=== PATIENT | male | born 1945 | race Caucasian/White ===

== ENCOUNTER 2018-11-10 11:45 | Inpatient (IN) ==
--- NOTE | 2018-11-03 08:59 | EKG Report ---
Test Performed on : 11/03/2018 08:41:02 AM Test Reason : PAT Blood Pressure : / mmHG Vent. Rate : 067 BPM Atrial Rate : 067 BPM P-R Int : 170 ms QRS Dur : 094 ms QT Int : 406 ms P-R-T Axes : 058 022 053 degrees QTc Int : 429 ms Normal sinus rhythm. Normal ECG When compared with ECG of 02-NOV-2007 07:14, No significant change was found Confirmed by Victor M SHARMA, Mitchel Lujan ([id number]) on 11/04/2018 7:12:41 PM
[2018-11-03 10:20] LABS: URINE SOURCE CLEAN CATCH
[2018-11-03 10:25] LABS: BASO# 0.03 X1000 (0.0-0.2); BASO% 0.4 % (0.0-0.8); EOS# 1.17 X1000 (0.0-0.7); EOS% 14.4 % (0.0-10.0); HEMATOCRIT 44.2 % (42.0-52.0); HEMOGLOBIN 14.5 g/dL (14.0-18.0); IMM GRAN# 0.04 X1000 (0.0-0.04); IMM GRAN% 0.5 % (0.0-0.5); LYMPH# 1.07 X1000 (1.2-3.4); LYMPH% 13.2 % (20.5-51.1); MCH 29.4 PG (27-31); MCHC 32.8 g/dL (33-37); MCV 89.7 FL (81-99); MONO# 0.67 X1000 (0.11-0.59); MONO% 8.3 % (1.7-9.3); MPV 9.8 FL (7.4-10.4); NEUT# 5.14 X1000 (1.4-6.5); NEUT% 63.2 % (42.2-75.2); PLT 283 X1000 (130-400); RBC 4.93 XMIL (4.7-6.1); RDW 14.8 % (11.5-14.5); WBC 8.12 X1000 (4.8-10.8)
[2018-11-03 10:30] LABS: BILIRUBIN URINE NEGATIVE (NEGATIVE); BLOOD URINE NEGATIVE (NEGATIVE); COLOR YELLOW; GLUCOSE URINE NEGATIVE (NEGATIVE); KETONE URINE NEGATIVE (NEGATIVE); LEUKOCYTES URINE NEGATIVE (NEGATIVE); NITRITE URINE NEGATIVE (NEGATIVE); PROTEIN URINE NEGATIVE (NEGATIVE); SP GRAVITY URINE 1.014; TURBIDITY URINE CLEAR (CLEAR); UROBILINOGEN URINE NORMAL (NORMAL)
[2018-11-03 10:31] LABS: UR EPITHELIAL CELLS <10 /HPF (<10); URINE BACTERIA NEGATIVE /HPF; URINE RBC <10 /HPF (<10); URINE WBC <10 /HPF (<10)
[2018-11-03 10:32] LABS: INR 0.9; PROTIME 12.9 Seconds (11.0-16.0)
[2018-11-03 10:33] LABS: PTT 28.3 Seconds (22.3-41.8)
[2018-11-03 10:59] LABS: CALCIUM 9.8 mg/dL (8.8-10.2); CREATININE 1.6 mg/dL (0.7-1.2); POTASSIUM 4.9 mmol/L (3.5-5.1)
[2018-11-24] MEDS ORDERED: REGLAN ONE (07:14)
[2018-11-24] MEDS ORDERED: COLACE ONE (07:14)
[2018-11-24] MEDS ORDERED: KEFZOL 1 GM/D5W 2 GM/100 ML IVPB ONE (07:14)
[2018-11-24] MEDS ORDERED: PEPCID ONE (07:14)
[2018-11-24] MEDS ORDERED: LR 1,000 ML ONE (07:14)
[2018-11-24] MEDS ORDERED: LYRICA ONE (07:14)
[2018-11-24] MEDS ORDERED: TORADOL ONE (07:16)
[2018-11-24] MEDS ORDERED: DURAMORPH ONE (07:16)
[2018-11-24] MEDS ORDERED: VANCOMYCIN ONE (07:16)
[2018-11-24] MEDS ORDERED: SODIUM CHLORIDE 0.9% ONE (07:17)
[2018-11-24] MEDS ORDERED: NEOSPORIN G.U. IRRIGANT ONE (07:17)
[2018-11-24] MEDS ORDERED: EXPAREL 1.3% ONE (07:17)
[2018-11-24] MEDS ORDERED: SENSORCAINE-MPF 0.5%/EPI 1:200,000 ONE (07:17)
[2018-11-24] MEDS ORDERED: CYKLOKAPRON 1,000 MG/NS 1,000 MG/100 ML IVPB ONE (07:17)
[2018-11-24] MEDS ORDERED: DIPRIVAN 1% ONE (07:25)
[2018-11-24] MEDS ORDERED: XYLOCAINE-MPF 2% ONE (07:26)
[2018-11-24] MEDS ORDERED: FENTANYL ONE (07:26)
[2018-11-24] MEDS ORDERED: NORCURON ONE (07:31)
[2018-11-24] MEDS ORDERED: SODIUM CHLORIDE 0.9% 10 ML ONE (07:31)
[2018-11-24] MEDS ORDERED: CLARITIN PO SCH (09:00)
[2018-11-24] MEDS ORDERED: EPHEDRINE ONE (09:23)
[2018-11-24] MEDS ORDERED: SOLU-CORTEF ONE (09:26)
[2018-11-24] MEDS ORDERED: ZOFRAN ONE (09:26)
[2018-11-24] MEDS ORDERED: OFIRMEV 1000 MG/ISOTONIC SOLN 1,000 MG/100 ML BOTTLE ONE (09:26)
[2018-11-24] MEDS ORDERED: NEOSTIGMINE ONE (09:48)
[2018-11-24] MEDS ORDERED: ROBINUL ONE (09:51)
--- NOTE | 2018-11-24 10:38 | OPERATIVE NOTE ---
PROCEDURE DATE: 11/24/2018 PREOPERATIVE DIAGNOSIS: Left glenohumeral arthritis with chronic rotator cuff tear. POSTOPERATIVE DIAGNOSIS: Left glenohumeral arthritis with chronic rotator cuff tear. PROCEDURE: Left reverse total shoulder arthroplasty with a DePuy Delta Xtend size 10 Press-Fit stem, a 42+6 humeral cup, a 42 eccentric Glenosphere and a standard metaglene. SURGEON: Zander Carver MD. 1ST HATCHERY HELPER: JOCELYN Colon 2ND HATCHERY HELPER: Maulik Bowie RN. ANESTHESIA: General. IV FLUIDS: 1700 mL lactated Ringer's. ESTIMATED BLOOD LOSS: 150 mL. COMPLICATIONS: None. INDICATION: The patient is a 73-year-old male with chronic history of pain and discomfort in his left shoulder. He is status post rotator cuff repair last year. He has continued with pain and discomfort and subsequent MR arthrogram was obtained and revealed evidence of degenerative glenohumeral arthritis as well as large chronic recurrent tear. Given patient's findings, recommendation to proceed with left reverse shoulder arthroplasty was offered. Risks and benefits of surgery were explained, including the risks of anesthesia, , bleeding, infection, failure to relieve pain, postoperative stiffness, nerve injury, blood clots, and other imponderables. All questions were answered and the patient and family wished to proceed with surgery. DETAILS OF OPERATION: Patient was taken to the operating room and placed supine on operating table. Once adequate anesthesia was obtained, patient was placed in semi-Rodriguez beach-chair position. The left shoulder was subsequently prepped and draped in usual sterile fashion. A standard deltopectoral incision was made with a skin knife. Medial and lateral skin envelopes were developed. The deltopectoral interval was then developed and the cephalic vein was retracted laterally with the deltoid. Stay sutures placed in the subscapularis tendon. Approximately 1 cm medial to its insertion the subscapularis tendon was released. Retractor was then placed. The shoulder was then dislocated anteriorly. Patient did have evidence of degenerative glenohumeral arthritis. A starting reamer was then passed. Sequential reaming was conducted up to size 10. The intramedullary guide was then placed and the proximal humeral cutting block was pinned in position, approximately 10 to 15 degrees of retroversion. The humeral head was then resected. The inferior osteophyte was removed with osteotome. After this had been performed, the attention was then turned to the glenoid. Circumferential dissection was performed with the deep knife. A guide was then placed in position to position the guide pin and the guide pin was placed. Reaming was then conducted. The central hole was then dilated. After this had been performed, the wound was copiously irrigated with antibiotic pulsatile lavage. A standard metaglene was then impacted into position. 2 locking screws and 2 nonlocking screws were placed and had good purchase and good stability. The wound was copiously irrigated. A 42 eccentric Glenosphere was then placed with the eccentricity placed inferiorly. After this had been performed, attention was then turned to the proximal humerus. The intramedullary guide was placed in position and the proximal humerus was reamed. A size 10 Delta Xtend Press-Fit stem was impacted in approximately 15 degrees of retroversion and had good fit. Trial cup size was then placed. 42+ 6 humeral cup appeared to be correct size. The trial cup was removed. The wound was copiously irrigated. A 42+ 6 humeral cup was impacted on the stem. The shoulder was reduced, carried through range of motion and had good range of motion and good stability. The wound was copiously irrigated once again. Exparel was placed in deep soft tissue. A #2 FiberWire was used to repair the subscapularis tendon. There appeared to be good repair. The remaining Exparel was placed in the deep tissue as well subcutaneous tissue. The wound was copiously irrigated once again. Final irrigation was then performed. 2-0 Vicryl was used to repair the subcutaneous tissue, followed by running 2-0 Prolene. Benzoin and Steri-Strips were applied. Adaptic, sterile 4 x 4, ABD pad, and tape were applied to the left shoulder, followed by shoulder immobilizer. All counts were correct. Patient tolerated the procedure well and was transferred to recovery room in stable condition. cc: Zander Carver MD
[2018-11-24 11:02] LABS: URINE SOURCE CATH
[2018-11-24 11:08] LABS: BILIRUBIN URINE NEGATIVE (NEGATIVE); BLOOD URINE NEGATIVE (NEGATIVE); COLOR ORANGE; GLUCOSE URINE NEGATIVE (NEGATIVE); KETONE URINE NEGATIVE (NEGATIVE); LEUKOCYTES URINE NEGATIVE (NEGATIVE); NITRITE URINE NEGATIVE (NEGATIVE); PH URINE 6.5; PROTEIN URINE NEGATIVE (NEGATIVE); SP GRAVITY URINE 1.015; TURBIDITY URINE CLEAR (CLEAR); UROBILINOGEN URINE NORMAL (NORMAL)
[2018-11-24 11:09] LABS: UR EPITHELIAL CELLS <10 /HPF (<10); URINE BACTERIA NEGATIVE /HPF; URINE RBC <10 /HPF (<10); URINE WBC <10 /HPF (<10)
[2018-11-24] MEDS ORDERED: NS 1,000 ML ONE (11:20)
--- NOTE | 2018-11-24 11:20 | Diag Imaging Result Doc PS360 ---
EXAM: SHOULDER 1 VIEW LEFT 11/24/2018 HISTORY: total shoulder reverse on left TECHNIQUE: Portable left shoulder one view COMMENT: There is no evidence of acute fracture or dislocation. There is a total shoulder arthroplasty. IMPRESSION: No evidence of acute bony disease. Electronically signed by Nikhil Bhatt 11/24/2018 11:18 AM
[2018-11-24] MEDS: DILAUDID ONE ×2 (11:36→11:40)
[2018-11-24] MEDS ORDERED: ZOFRAN PO PRN (12:15)
[2018-11-24] MEDS ORDERED: NS 1,000 ML IV SCH (12:15)
[2018-11-24] MEDS ORDERED: DILAUDID IV PRN ×2 (12:15)
[2018-11-24] MEDS ORDERED: OXY IR PO PRN ×2 (12:15)
[2018-11-24] MEDS: TYLENOL PO SCH (15:24)
[2018-11-24] MEDS: KEFZOL 1 GM/D5W 1 GM/50 ML IVPB IV SCH (15:30)
[2018-11-24] MEDS: FLOMAX PO SCH (20:32)
[2018-11-24] MEDS ORDERED: MAG-OX PO SCH (21:00)
[2018-11-24] MEDS ORDERED: ALDACTONE PO SCH (21:00)
[2018-11-24] MEDS ORDERED: PERIDEX MT SCH (21:00)
[2018-11-24] MEDS ORDERED: COZAAR PO SCH (21:00)
[2018-11-24] MEDS ORDERED: PROSCAR PO SCH (21:00)
[2018-11-24] MEDS ORDERED: PRAVACHOL PO SCH (21:00)
[2018-11-25] MEDS: TYLENOL PO SCH ×3 (00:22→06:50)
[2018-11-25] MEDS: KEFZOL 1 GM/D5W 1 GM/50 ML IVPB IV SCH (00:22)
[2018-11-25 05:48] LABS: HEMATOCRIT 38.1 % (42.0-52.0); HEMOGLOBIN 12.8 g/dL (14.0-18.0)
[2018-11-25 06:02] LABS: CALCIUM 8.6 mg/dL (8.8-10.2); CREATININE 1.4 mg/dL (0.7-1.2); POTASSIUM 4.4 mmol/L (3.5-5.1)
[2018-11-25] MEDS: FLOMAX PO SCH (06:05)
--- NOTE | 2018-11-25 06:24 | PROGRESS NOTE ---
DATE: 11/25/2018 SUBJECTIVE: The patient is a pleasant 73-year-old male who is one day status post left reversal shoulder arthroplasty. He appears to be resting comfortably. He has no complaints. OBJECTIVE: On physical exam, patient's left upper extremity dressing is intact. He is neurovascularly distally. Good foam rubber mixer strength. LABORATORY DATA: His hemoglobin is 12.8 and hematocrit is 38.1. IMPRESSION: Postoperative day #1 status post left reverse total shoulder arthroplasty. PLAN: At this point, we will change his dressing. We will plan on discharging him home. The patient will follow up on 12/06/2018. We will arrange for outpatient physical therapy. cc: Zander Carver MD
[2018-11-25 08:04] VITALS: BP 104/57
== END 2018-11-25 08:22 | disposition home or self-care (01) | DRG 483 ==
LOC: SURHOLD 11-24 06:31 → 4N 11-24 11:13
PROVIDERS: ADMIT Orthopaedic Surgery Adult Reconstructive Orthopaedic Surgery; ATTEND Orthopaedic Surgery Adult Reconstructive Orthopaedic Surgery
CPT/HCPCS: 73020; 80048; 81001; 85014; 85018; 85025; 85610; 85730; 86850; 86900; 86901; 88304; 88311; 93005; 93010; 94761; 94799; A9270; C9290; J0131; J0690; J1170; J1720; J1885; J2274; J2275; J2405; J3010; J3370; J7030; J7120; Q9974; S0138

== ENCOUNTER 2019-10-20 01:07 | Inpatient (IN) ==
--- NOTE | 2019-10-12 10:45 | EKG Report ---
Test Performed on : 10/12/2019 10:33:24 AM Test Reason : PAT Blood Pressure : / mmHG Vent. Rate : 074 BPM Atrial Rate : 074 BPM P-R Int : 170 ms QRS Dur : 100 ms QT Int : 384 ms P-R-T Axes : 052 036 054 degrees QTc Int : 426 ms Normal sinus rhythm. Normal ECG When compared with ECG of 03-NOV-2018 08:41, No significant change was found Confirmed by Toribio SHARMA, Ernesto ([id number]) on 10/12/2019 5:54:43 PM
[2019-10-12 10:47] LABS: URINE SOURCE CLEAN CATCH
[2019-10-12 11:21] LABS: BASO# 0.03 X1000 (0.0-0.2); BASO% 0.3 % (0.0-0.8); EOS# 0.46 X1000 (0.0-0.7); EOS% 3.8 % (0.0-10.0); HEMATOCRIT 46.1 % (42.0-52.0); IMM GRAN# 0.03 X1000 (0.0-0.04); IMM GRAN% 0.3 % (0.0-0.5); LYMPH# 1.05 X1000 (1.2-3.4); LYMPH% 8.8 % (20.5-51.1); MCH 29.6 PG (27-31); MCHC 32.5 g/dL (33-37); MCV 90.9 FL (81-99); MONO# 0.55 X1000 (0.11-0.59); MONO% 4.6 % (1.7-9.3); NEUT# 9.86 X1000 (1.4-6.5); NEUT% 82.2 % (42.2-75.2); PLT 271 X1000 (130-400); RBC 5.07 XMIL (4.7-6.1); RDW 13.5 % (11.5-14.5); WBC 11.98 X1000 (4.8-10.8)
[2019-10-12 11:38] LABS: BILIRUBIN URINE NEGATIVE (NEGATIVE); BLOOD URINE NEGATIVE (NEGATIVE); COLOR YELLOW; GLUCOSE URINE NEGATIVE (NEGATIVE); KETONE URINE NEGATIVE (NEGATIVE); LEUKOCYTES URINE NEGATIVE (NEGATIVE); NITRITE URINE NEGATIVE (NEGATIVE); PH URINE 5.5; PROTEIN URINE NEGATIVE (NEGATIVE); SP GRAVITY URINE 1.025; TURBIDITY URINE CLEAR (CLEAR); UROBILINOGEN URINE 2 mg/dL (NORMAL)
[2019-10-12 11:39] LABS: INR 0.96; PROTIME 12.9 Seconds (11.0-16.0); UR EPITHELIAL CELLS <10 /HPF (<10); URINE BACTERIA NEGATIVE /HPF; URINE RBC <10 /HPF (<10); URINE WBC <10 /HPF (<10)
[2019-10-12 11:40] LABS: PTT 26.3 Seconds (22.3-41.8)
[2019-10-12 11:47] LABS: CALCIUM 9.5 mg/dL (8.8-10.2); CREATININE 1.6 mg/dL (0.7-1.2); POTASSIUM 4.1 mmol/L (3.5-5.1)
[2019-10-12 11:53] LABS: HEMOGLOBIN A1C 5.7 % (4.8-6.0)
[2019-10-20] MEDS ORDERED: LYRICA ONE (06:25)
[2019-10-20] MEDS ORDERED: COLACE ONE (06:25)
[2019-10-20] MEDS ORDERED: REGLAN ONE (06:25)
[2019-10-20] MEDS ORDERED: LR 1,000 ML ONE (06:25)
[2019-10-20] MEDS ORDERED: KEFZOL 1 GM/D5W 2 GM/100 ML IVPB ONE (06:25)
[2019-10-20] MEDS ORDERED: PEPCID ONE (06:25)
[2019-10-20] MEDS ORDERED: DIPRIVAN 1% ONE (07:27)
[2019-10-20] MEDS ORDERED: SUFENTA ONE ×2 (07:29→10:33)
[2019-10-20] MEDS ORDERED: MARCAINE 0.5% PF ONE (07:55)
[2019-10-20] MEDS ORDERED: EXPAREL 1.3% ONE (07:56)
[2019-10-20] MEDS ORDERED: EPHEDRINE ONE (08:38)
[2019-10-20] MEDS ORDERED: XYLOCAINE-MPF 2% ONE (08:40)
[2019-10-20] MEDS ORDERED: ROBINUL ONE (09:04)
[2019-10-20] MEDS ORDERED: ZOFRAN ONE ×2 (10:27→12:37)
[2019-10-20] MEDS ORDERED: DECADRON ONE ×2 (10:27→12:37)
[2019-10-20] MEDS ORDERED: MORPHINE IV PRN (11:09)
[2019-10-20] MEDS ORDERED: DILAUDID IV PRN (12:46)
--- NOTE | 2019-10-20 12:59 | OPERATIVE NOTE ---
PROCEDURE DATE: 10/20/2019 PREOPERATIVE DIAGNOSIS: Right ankle posttraumatic osteoarthritis. POSTOPERATIVE DIAGNOSIS: Right ankle posttraumatic osteoarthritis. PROCEDURE: Right total ankle replacement. SURGEON: Dr. Brien Latham. LEAD SHAREPOINT DEVELOPER: JOCELYN Hooks, who was an integral part of the case, helping with all aspects of the case. She helped to increase our OR efficiency greatly. ANESTHESIA: General with LMA. TOURNIQUET TIME: Was about 130 minutes. IMPLANTS: 1. Exactech advantage total ankle, size 2 tibia, size 2 talus and size 8 mm poly. 2. Synthes 1/3 tubular plate and screws. DISPOSITION: To PACU, hemodynamically stable. INDICATION FOR PROCEDURE: Mr. Hathaway is a 74-year-old male, who I have seen in clinic for evaluation of his right ankle osteoarthritis. We discussed fusion and total ankle. He does have a valgus deformity. So, we went over all that. We ultimately decided on ankle replacement. I went over with him the procedure, risks, benefits, potential complications. He expressed understanding and wished to proceed. DESCRIPTION OF PROCEDURE IN DETAIL: Mr. Hathaway was identified in the preoperative holding area. The right ankle was marked as correct surgical site. He was then wheeled to the operating room, placed supine on the operating table. All bony prominences well padded. He was induced under general anesthesia. LMA was placed. Tourniquet was placed to the right thigh. Right lower extremity then prepped with chlorhexidine, gluconate scrub and then ChloraPrep, and draped in normal sterile fashion. Surgical pause was performed. We identified the correct patient, correct side, and the correct procedure. Preop antibiotics were given. Esmarch was used to exsanguinate the right lower extremity. Tourniquet was inflated to 300 mmHg. I started with an anterior longitudinal incision over the ankle. Dissection was carried down through the retinaculum, identified the TA tendon and the EHL in that interval. We protected the neurovascular bundle the whole time. Used a Gelpi to hold the soft tissues apart to expose the anterior tibia from the medial malleolus to the lateral aspect, exposed the talus. Took off some of the anterior osteophytes that were there so we can get a better idea of what the tibia looked like and the talus. After good exposure of then, I got my alignment guide, put the tibial tubercle pin in, and then got my alignment distally. We used fluoroscopic imaging the whole time. He did have some malunion of that whole distal tibia and fibula. The fibula was extremely posterior and everything was in external rotation. He had already had a total knee done as well. So, we lined everything up off of the medial gutter as far as our rotation, which did line up with that 2nd toe when we had him in neutral dorsiflexion. We then pinned everything into place. I got the position of my tibial cut. We got medial-lateral our height and superior- inferior with the aid of fluoroscopic imaging. I then pinned it in place and made my tibial cut. It took awhile to get all that bone out. When I was able to get all that bone out, especially posteriorly, there was a pretty good bit of bone back there. You see, in the very odd anatomy that he had, his fibula was extremely posterior, but on his preop CT scan it was in the incisura. I then focused on the talus. We used some distraction to get his talus back rotated neutral instead of in valgus. We made our initial cut and then pinned the talar cutting guide in and then made our chamfer cuts. We had to take some more anterior-superior bone off the neck of the talus to get our talar trial down. I was able to then get my talar trial on, get my tibial trial on, started with a 6 poly, then went up to an 8, and then trialed actually the size 10. That seemed to be a good fit. I did temporarily pin the medial malleolus because we did get a little bit thin with our cut in his anatomy, and so I did pin it. I did not put a screw at that time. We never had a medial malleolar fracture either. I then broached the tibia and the talus. I put my tibial component in, my talar component in, and I tried to get the 10 poly in it and it just would not go. So, we ended up going with a size 8 poly, and we got it in and it actually went really well. The ankle felt nice and stable. It was taken through a range of motion. Range of motion was really good. Fluoroscopic imaging showed that the implant looks to be in good position. I did not see any impingement. I went ahead and put a 1/3 tubular plate on the medial malleolus just to protect it. There was no fracture there, but we did that for added protection. I then closed everything in a layered fashion; 0 Vicryl for the deep layer, 2-0 Vicryl for the subcutaneous and nylon on the skin. Adaptic, 4 x 4s, ABD, soft roll and posterior splint was applied. Tourniquet was let down. Patient had good cap refill return to the toes. He was then wheeled from general anesthesia, moved to his own bed and taken to PACU in stable condition. PLAN: Postoperatively, he will be admitted and I will see him in the morning. He is nonweightbearing. cc: Brien Latham MD
[2019-10-20] MEDS: KEFZOL 1 GM/D5W 1 GM/50 ML IVPB IV SCH ×2 (16:33→22:09)
[2019-10-20] MEDS: OXY IR PO PRN (18:54)
[2019-10-20] MEDS ORDERED: ALDACTONE PO SCH (21:00)
[2019-10-20] MEDS ORDERED: VITAMIN B-12 SL SCH (21:00)
[2019-10-20] MEDS ORDERED: PATIENT'S OWN MED PO SCH ×2 (21:00)
[2019-10-20] MEDS ORDERED: PROSCAR PO SCH (21:00)
[2019-10-20] MEDS ORDERED: COZAAR PO SCH (21:00)
[2019-10-20] MEDS ORDERED: PRAVACHOL PO SCH (21:00)
[2019-10-20] MEDS ORDERED: VITAMIN D PO SCH (21:00)
[2019-10-20] MEDS ORDERED: MAG-OX PO SCH (21:00)
[2019-10-20] MEDS: PERIDEX MT SCH (22:09)
[2019-10-20] MEDS: PATIENT'S OWN MED PO SCH ×2 (22:13→22:14)
[2019-10-20] MEDS: TYLENOL PO PRN (23:54)
[2019-10-21] MEDS: TYLENOL PO PRN (04:29)
[2019-10-21] MEDS: KEFZOL 1 GM/D5W 1 GM/50 ML IVPB IV SCH ×2 (05:29→08:22)
[2019-10-21] MEDS ORDERED: LOVENOX SUBQ SCH (06:00)
--- NOTE | 2019-10-21 06:59 | ORTHOPAEDICS PROGRESS NOTE ---
DATE: 10/21/2019 SUBJECTIVE: Mr. Hathaway is lying in bed this morning. Having a little bit of pain in the ankle, but it is very tolerable. He was resting well this morning. OBJECTIVE: Right lower extremity exam, dressing is clean, dry, and intact. He has good dorsiflexion and plantar flexion of the toes and has good sensation to light touch to the toes and good capillary refill. ASSESSMENT: Status post right total ankle replacement. PLAN: Mr. Hathaway will remain nonweightbearing right now. If everything looks good, then he will be discharged home today and then I will see him in 1 week in clinic. cc: Brien Latham MD
[2019-10-21 07:43] VITALS: BP 111/54
[2019-10-21] MEDS: PERIDEX MT SCH (08:23)
[2019-10-21] MEDS: PATIENT'S OWN MED PO SCH ×2 (08:25)
[2019-10-21] MEDS ORDERED: CLARITIN PO SCH (09:00)
[2019-10-21] MEDS ORDERED: FLOMAX PO SCH (09:00)
[2019-10-21] MEDS ORDERED: COENZYME Q10 PO SCH (09:00)
[2019-10-21] MEDS ORDERED: PATIENT'S OWN MED PO SCH ×2 (09:00)
[2019-10-21] MEDS ORDERED: THERA M PLUS PO SCH (09:00)
[2019-10-21] MEDS: OXY IR PO PRN (09:43)
--- NOTE | 2019-10-21 14:23 | DISCHARGE SUMMARY ---
ADMISSION DATE: 10/20/2019 DISCHARGE DATE: 10/21/2019 ADMITTING DIAGNOSIS: Right ankle posttraumatic osteoarthritis. DISCHARGE DIAGNOSIS: Right ankle posttraumatic osteoarthritis. PROCEDURES: On 10/20/2018, Dr. Latham performed a right total ankle replacement. HOSPITAL COURSE: Mr. Hathaway is a 74-year-old male who Dr. Latham had been seeing in clinic for evaluation of his right ankle osteoarthritis. They had tried multiple conservative treatment options. oil heaterman, Mr. Hathaway was still having difficulty with his activities of daily living. Because of that, ultimately, they decided on ankle replacement. Dr. Latham discussed with him risks, benefits and the procedure in detail. The patient wished to proceed. He was taken to the operating room where satisfactory anesthesia was obtained. He tolerated the procedure well and was transferred to the recovery room. After satisfactory recovery, he was transferred to [address] [place] [address]. He has had an uneventful postoperative course. He is in a surgical splint and has been nonweightbearing. His vital signs, temperature is 98 degrees, pulse 60, respirations 20, blood pressure is 111/54. He is 96% on room air. He has voided postoperatively and is tolerating food. His pain is well controlled. At this time, he is ready for discharge. DISCHARGE MEDICATIONS: Vitamin D 2000 units p.o. at bedtime, vitamin B12 5000 mcg sublingual at bedtime, Lovenox 40 mg subcutaneous every 24 hours for 30 days, Proscar 5 mg p.o. at bedtime, Claritin 10 mg p.o. q.a.m., Cozaar 50 mg p.o. at bedtime, Mag-Ox 400 mg p.o. at bedtime, MVI 1 p.o. daily, Percocet 5 mg p.o. every 4 hours as needed for pain, Pravachol 40 mg p.o. at bedtime, Aldactone 25 mg p.o. at bedtime, Flomax 0.4 mg p.o. q.a.m. DISCHARGE DISPOSITION: Mr. Hathaway is being discharged home to self-care. He does have a that lives with him. He has a good support system. He will be nonweightbearing to the right lower extremity. He will keep the surgical splint in place. We did discuss postoperative signs and symptoms of infection and DVT. He is on Lovenox for DVT prophylaxis. We will do Percocet for pain control. He is going to follow up with Dr. Latham in the office in 1 week. Dictated by JOCELYN Hooks for Brien Latham MD cc: JOCELYN Hooks MD
== END 2019-10-21 11:37 | disposition home or self-care (01) | DRG 469 ==
LOC: SURHOLD 01:07 → 4N 12:43
PROVIDERS: ADMIT Orthopaedic Surgery; ATTEND Orthopaedic Surgery